=== PATIENT | male | born 1990 | race Caucasian/White ===

== ENCOUNTER 2017-12-21 17:17 | Emergency (ER) | payer SELFPAY ==
[~2017-12-21] VITALS: Ht 177.8 cm; Wt 95.0 kg
[~2017-12-21 17:17] MED LIST: DICL50TA2 PO; PENVK500 PO; TRAM50TA PO
[2017-12-21] MEDS ORDERED: IOHEXOL 350 MG/ML 10 ML VIAL (for RAD DIAG) IVCONTRAST ONE (17:18)
[2017-12-21 17:26] VITALS: BP 133/72; PULSE 77; RESP 20; TEMP 98.7; O2SAT 100
--- NOTE | 2017-12-21 18:02 | PD ---
HPI Chief Complaint: Abdominal Pain Time Seen by Provider: 17:47 Travel History International Travel<30 days: No Contact w/Intl Traveler<30days: No Traveled to known affect area: No History of Present Illness HPI 27-year-old male presents emergency department for evaluation of left lower abdominal pain radiating to his left groin. This began 2 days ago. It is a constant ache, intermittently sharp. He denies any urinary symptoms. He has not been nauseous. He has had no vomiting. He denies any changes in bowel or bladder. He states that he noticed that his left testicle is "missing." He states in high school he did have a retracted testes, but it dropped on its own. He has not had any problems since this. He denies any trauma. He has had no fever or chills. He has no other symptoms to report. [facility] Past Medical History Medical History: Denies Significant Hx Diminished Hearing: No Social History Alcohol Use: Yes (OCCASIONAL) Tobacco Use: Yes (3/4 PPD) Substance Use: No Allergies-Medications (Allergen,Severity, Reaction): Coded Allergies: No Known Allergies (Unverified , 05/31/15) Reported Meds & Prescriptions Reported Meds & Active Scripts Active No Active Prescriptions or Reported Medications Review of Systems Except as stated in HPI: all other systems reviewed are Neg Physical Exam Narrative GENERAL: Well-nourished, well-developed male patient in no acute distress SKIN: Focused skin assessment warm/dry. HEAD: Normocephalic. EYES: No scleral icterus. No injection or drainage. NECK: Supple, trachea midline. No JVD or lymphadenopathy. CARDIOVASCULAR: Regular rate and rhythm without murmurs, gallops, or rubs. RESPIRATORY: Breath sounds equal bilaterally. No accessory muscle use. GASTROINTESTINAL: Abdomen soft, non-tender, nondistended. No guarding. No rebound tenderness GENITOURINARY: unCircumcised. Right testes is descended without evidence of rotation. The left testes appears to have rescinded. No lesions or erythema. No urethral discharge. MUSCULOSKELETAL: No cyanosis, or edema. BACK: Nontender without obvious deformity. No CVA tenderness. Data Data Last Documented VS Vital Signs Date Time Temp Pulse Resp B/P (MAP) Pulse Ox O2 Delivery O2 Flow Rate FiO2 12/21/17 17:26 98.7 77 20 133/72 (92) 100 Orders Orders Urinalysis - C+S If Indicated (12/21/17 17:50) Gc And Chlamydia Pcr (12/21/17 17:50) Ct Abd/Pel W Iv Contrast(Rout) (12/21/17 ) Iv Access Insert/Monitor (12/21/17 17:54) Complete Blood Count With Diff (12/21/17 17:54) Basic Metabolic Panel (Bmp) (12/21/17 17:54) Us Testicles W Doppler (12/21/17 ) MDM Medical Decision Making Medical Screen Exam Complete: Yes Emergency Medical Condition: Yes Medical Record Reviewed: Yes Differential Diagnosis UTI versus testicular torsion versus renal calculi versus hernia versus undescended testicle Narrative Course 27-year-old male presents emergency department for evaluation of left lower abdominal pain radiating to his groin. Patient does have an undescended left testicle and this is a new outside of an occurrence in high school. Patient appears well. Lab work is sent as well as urinalysis. CT imaging of the abdomen pelvis as well as testicular ultrasound was ordered. 1900 patient signed out to my attending physician who will review the findings and disposition patient appropriately. Scripts No Active Prescriptions or Reported Meds Condition: Swati Arce Dec 21, 2017 18:02
[2017-12-21 18:38] LABS: AUTOMATED NEUTROPHIL # 5.3 TH/MM3 (1.8-7.7); BASOPHIL # 0.1 TH/MM3 (0-0.2); BASOPHIL % 0.5 % (0.0-2.0); EOSINOPHIL # 0.2 TH/MM3 (0-0.4); HEMATOCRIT 44.4 % (39.0-51.0); HEMOGLOBIN 15.4 GM/DL (13.0-17.0); LYMPH % 34.5 % (9.0-44.0); LYMPHOCYTE # 3.4 TH/MM3 (1.0-4.8); MEAN CELL VOLUME 96.5 FL (80.0-100.0); MEAN CORPUSCULAR HEMOGLOBIN 33.5 PG (27.0-34.0); MEAN CORPUSCULAR HGB CONC 34.7 % (32.0-36.0); MONO % 9.3 % (0.0-8.0); MONOCYTE # 0.9 TH/MM3 (0-0.9); NEUT % 53.7 % (16.0-70.0); PLATELET COUNT 199 TH/MM3 (150-450); RED CELL DISTRIBUTION WIDTH 12.7 % (11.6-17.2); WHITE BLOOD COUNT 9.9 TH/MM3 (4.0-11.0)
--- NOTE | 2017-12-21 18:39 | RADRPT ---
EXAM DATE: 12/21/2017 6:30 PM EDT AGE/SEX: 27 years / Male INDICATIONS: Left lower abdomen pain for two days. CLINICAL DATA: This is the patient's initial encounter. Patient reports that signs and symptoms have been present for 2 days and indicates a pain score of 7/10. MEDICAL/SURGICAL HISTORY: None. None. ORAL CONTRAST: No oral contrast ingested. RADIATION DOSE: 8.9 CTDI (mGy) COMPARISON: No prior exams available for comparison. TECHNIQUE: Multiple contiguous axial images were obtained through the abdomen and pelvis following b olus infusion of 97 ml Omnipaque 350 (iohexol) nonionic water-soluble contrast as a single exam dos e. No oral contrast ingested. Using automated exposure control and adjustment of the mA and/or kV ac cording to patient size, the radiation dose was kept as low as reasonably achievable to obtain optima l diagnostic quality images. FINDINGS: Lung bases are clear. No pleural or pericardial effusion. Mild fatty liver. Spleen, adrenals, kidneys and pancreas are unremarkable. No calcified gallstones or biliary ductal dilatation. No free fluid. No bowel obstruction. No adenopathy. No acute bony abnormalities. There is some fluid attenuation in the left inguinal canal measuring up to about 2.7 cm in diameter. CONCLUSION: 1. No acute findings on abdomen and pelvic CT. Fluid in the left inguinal canal measuring up to 2.7 cm in diameter. Electronically signed by: Ricky Cole MD 12/21/2017 6:38 PM EDT
[2017-12-21 18:50] LABS: AMORPHOUS SEDIMENT, URINE RARE; BILIRUBIN, URINE NEG (NEG); BLOOD, URINE NEG (NEG); GLUCOSE,URINE NEG (NEG); KETONE, URINE NEG (NEG); MUCUS URINE FEW /lpf (OCC); NITRITE,URINE NEG (NEG); PH, URINE 5.5 (5.0-8.5); URINE COLOR YELLOW (YELLW/STRAW); URINE LEUKOCYTE ESTERASE NEG (NEG)
[2017-12-21 19:03] LABS: BICARBONATE 29.3 MEQ/L (21.0-32.0); CALCIUM 9.1 MG/DL (8.5-10.1); CREATININE 1.24 MG/DL (0.60-1.30)
--- NOTE | 2017-12-21 19:12 | RADRPT ---
EXAM DATE: 12/21/2017 7:00 PM EDT AGE/SEX: 27 years / Male INDICATIONS: Left groin pain. CLINICAL DATA: This is the patient's initial encounter. Patient reports that signs and symptoms have been present for 1 day and indicates a pain score of 7/10. MEDICAL/SURGICAL HISTORY: . Undescended left testicle. . COMPARISON: [facility] [place], CT ABDOMEN & PELVIS W CONTRAST, 12/21/2017. . No external comparison. MEASUREMENTS (cm x cm x cm): Right Testicle:__3.5 x 2.0 x 1.6 cm Left Testicle:__3.4 x 1.9 x 1.4 cm FINDINGS: Right Testicle: Homogeneous echotexture without intra or extratesticular mass. Blood flow is symmet amy and within normal limits. No hydrocele or varicocele. Epididymis is within normal limits. Left Testicle: The left testicle is undescended and is within the left inguinal canal. Positive bloo d flow is present without evidence for torsion. Scrotum: Within normal limits. CONCLUSION: 1. Undescended left testicle. No testicular mass. No evidence for torsion. Electronically signed by: Ricky Cole MD 12/21/2017 7:11 PM EDT
--- NOTE | 2017-12-21 19:24 | PD ---
Physical Exam Narrative Patient was seen by my diver assistant and me. Data Data Last Documented VS Vital Signs Date Time Temp Pulse Resp B/P (MAP) Pulse Ox O2 Delivery O2 Flow Rate FiO2 12/21/17 17:26 98.7 77 20 133/72 (92) 100 Orders Orders Urinalysis - C+S If Indicated (12/21/17 17:50) Gc And Chlamydia Pcr (12/21/17 17:50) Ct Abd/Pel W Iv Contrast(Rout) (12/21/17 ) Iv Access Insert/Monitor (12/21/17 17:54) Complete Blood Count With Diff (12/21/17 17:54) Basic Metabolic Panel (Bmp) (12/21/17 17:54) Us Testicles W Doppler (12/21/17 ) Iohexol 350 Inj (Omnipaque 350 Inj) (12/21/17 17:18) Labs Laboratory Tests Test 12/21/17 18:10 White Blood Count 9.9 TH/MM3 Red Blood Count 4.60 MIL/MM3 Hemoglobin 15.4 GM/DL Hematocrit 44.4 % Mean Corpuscular Volume 96.5 FL Mean Corpuscular Hemoglobin 33.5 PG Mean Corpuscular Hemoglobin Concent 34.7 % Red Cell Distribution Width 12.7 % Platelet Count 199 TH/MM3 Mean Platelet Volume 8.0 FL Neutrophils (%) (Auto) 53.7 % Lymphocytes (%) (Auto) 34.5 % Monocytes (%) (Auto) 9.3 % Eosinophils (%) (Auto) 2.0 % Basophils (%) (Auto) 0.5 % Neutrophils # (Auto) 5.3 TH/MM3 Lymphocytes # (Auto) 3.4 TH/MM3 Monocytes # (Auto) 0.9 TH/MM3 Eosinophils # (Auto) 0.2 TH/MM3 Basophils # (Auto) 0.1 TH/MM3 CBC Comment DIFF FINAL Differential Comment Urine Color YELLOW Urine Turbidity HAZY Urine pH 5.5 Urine Specific [place] 1.031 Urine Protein TRACE mg/dL Urine Glucose (UA) NEG mg/dL Urine Ketones NEG mg/dL Urine Occult Blood NEG Urine Nitrite NEG Urine Bilirubin NEG Urine Urobilinogen LESS THAN 2.0 MG/DL Urine Leukocyte Esterase NEG Urine RBC 1 /hpf Urine WBC LESS THAN 1 /hpf Urine Amorphous Sediment RARE Urine Mucus FEW /lpf Microscopic Urinalysis Comment CULT NOT INDICATED Blood Urea Nitrogen 17 MG/DL Creatinine 1.24 MG/DL Random Glucose 84 MG/DL Calcium Level 9.1 MG/DL Sodium Level 138 MEQ/L Potassium Level 4.4 MEQ/L Chloride Level 102 MEQ/L Carbon Dioxide Level 29.3 MEQ/L Anion Gap 7 MEQ/L Estimat Glomerular Filtration Rate 70 ML/MIN [facility] Supervised Visit with RIMA: Yes Interpretation(s) Last Impressions Scrotum Ultrasound 12/21/17 0000 Signed Impressions: CONCLUSION: 1. Undescended left testicle. No testicular mass. No evidence for torsion. Abdomen/Pelvis CT 12/21/17 0000 Signed Impressions: CONCLUSION: 1. No acute findings on abdomen and pelvic CT. Fluid in the left inguinal messi l measuring up to 2.7 cm in diameter. 7:25 PM. CBC within normal limits. BMP within normal limits. UA is negative. GC chlamydia PCR pending. Diagnosis Primary Impression: Left inguinal pain Additional Impression: Undescended testes Qualified Codes: Q53.112 - Unilateral inguinal testis Patient Instructions: General Instructions Additional Instruction: Take medications as directed. Follow-up with urologist. Return if increasing redness swelling painful nausea vomiting fever. Med/Other Pt SpecificInfo: Prescription(s) given Scripts Meloxicam (Mobic) 15 Mg Tab 15 MG PO DAILY for Pain, #20 TAB 0 Refills Prov: Otis Sanchez MD 12/21/17 Doxycycline Hyclate (Doxycycline Hyclate) 100 Mg Cap 100 MG PO BID for Infection, #20 CAP 0 Refills Prov: Otis Sanchez MD 12/21/17 Disposition: 01 DISCHARGE HOME Condition: Stable Otis Sanchez MD Dec 21, 2017 19:24
[2017-12-21] MEDS ORDERED: MOBI15TA PO (19:28)
[2017-12-21] MEDS ORDERED: DOXY100C PO (19:28)
== END 2017-12-21 19:59 | disposition home or self-care (01) ==
LOC: NEPD 17:17
DX: R10.32 Left lower quadrant pain (principal); Q53.112 Unilateral inguinal testis; F17.200 Nicotine dependence, unspecified, uncomplicated
CPT/HCPCS: 74177; 76870; 80048; 81001; 85025; 87491; 87591; 93975; 99285; Q9967